=== PATIENT | female | born 1955 | race Caucasian/White ===

== ENCOUNTER 2017-03-03 18:39 | Inpatient (IN) | payer OTHER ==
[~2017-03-03] VITALS: Ht 165.1 cm; Wt 45.8 kg
--- NOTE | 2017-03-03 19:19 | NUR ---
PT TO ER BED
[2017-03-03] MEDS ORDERED: CHLORDIAZEPOXIDE HCL 25 MG CAPSULE PO ONE (19:30)
--- NOTE | 2017-03-03 19:30 | NUR ---
61 YO FEMALE BB FAMILY. PT IS ALERT X 3, C/O ALCOHOL WITHDRAW. PT STATES SHE WAS ON DRINKING BENDGE FOR A WEEK. PT AMBULATED TO ER BED, SKIN WARM AND DRY, RR EVEN AND UNLABORED. AWAITING ORDERS FROM PROVIDER
[2017-03-03] MEDS ORDERED: CHLORDIAZEPOXIDE HCL 25 MG CAPSULE ONE (19:37)
[2017-03-03 19:51] LABS: BASOPHILS # (AUTO) 0.1 /CMM (0.0-0.2); BASOPHILS % (AUTO) 0.6 % (0.0-2.0); EOSINOPHILS % (AUTO) 0.4 % (0.0-6.0); HEMATOCRIT 37 % (33-45); HEMOGLOBIN 12.6 g/dL (11.5-14.8); LYMPHOCYTES # (AUTO) 1.4 /CMM (0.8-4.8); LYMPHOCYTES % (AUTO) 14.3 % (20.0-44.0); MEAN CORPUSCULAR HEMOGLOBIN 33 PG (26.0-33.0); MEAN CORPUSCULAR HGB CONC 34 g/dl (31.0-36.0); MEAN CORPUSCULAR VOLUME 96 fL (82-100); MONOCYTES # (AUTO) 0.8 /CMM (0.1-1.30); MONOCYTES % (AUTO) 8.3 % (2.0-12.0); NEUTROPHILS # (AUTO) 7.6 /CMM (1.8-8.9); NEUTROPHILS % (AUTO) 76.4 % (43.0-81.0); PLATELET COUNT (AUTO) 218 /CMM (150-450); RDW COEFFICIENT OF VARIATION 14.2 (11.5-15.0); RED BLOOD CELL COUNT(AUTO) 3.86 MIL/uL (4.0-5.2); WHITE BLOOD COUNT (AUTO) 9.9 K/uL (4.3-11.0)
--- NOTE | 2017-03-03 19:51 | NUR ---
20G LEFT FA IV STARTED. BLOOD SAMPLE OBTAINED AND SENT TO LAB
[2017-03-03] MEDS ORDERED: IV NS 0.9% 500 ML BAG IV ONE (20:00)
[2017-03-03 20:05] LABS: CALCIUM, SERUM 9.1 mg/dL (8.5-10.1); CREATININE 0.8 mg/dL (0.6-1.3)
[2017-03-03 20:07] LABS: INR 0.93 (0.87-1.13); PROTHROMBIN TIME 9.7 SECS (9.5-12.7)
[2017-03-03 20:09] LABS: POTASSIUM 2.8 mmol/L (3.5-5.1)
[2017-03-03 20:10] LABS: ALBUMIN 4.1 g/dL (3.4-5.0); BILIRUBIN,DIRECT 0.5 mg/dL (0.0-0.2); BILIRUBIN,TOTAL 1.9 mg/dL (0.2-1.0); TOTAL PROTEIN, SERUM 7.5 g/dL (6.4-8.2)
[2017-03-03 20:13] LABS: TROPONIN I 0.022 ng/mL (0.00-0.056)
[2017-03-03] MEDS ORDERED: Magnesium 1 GM/2 ML VIAL IV ONE (20:30)
[2017-03-03] MEDS ORDERED: THIAMINE HCL 100 MG TABLET PO ONE (20:30)
[2017-03-03] MEDS ORDERED: POTASSIUM CHLORIDE 20 MEQ TAB.PRT.SR PO ONE ×2 (20:30→20:33)
[2017-03-03] MEDS ORDERED: IV NS 0.9% 500 ML IV ONE (20:33)
[2017-03-03] MEDS ORDERED: POTASSIUM CL. PREMIX PERIPHER. 50 ML ONE ×2 (20:33→21:19)
[2017-03-03] MEDS ORDERED: THIAMINE HCL 100 MG TABLET ONE (20:33)
[2017-03-03] MEDS ORDERED: Magnesium 1GM/D5W 100ML PREMIX 200 ML IV ONE (20:34)
[2017-03-03] MEDS ORDERED: IV SET PRIMARY PUMP SET 1 EA INFUS.SET MC ONE ×3 (20:34→23:07)
--- NOTE | 2017-03-03 20:38 | NUR ---
CALLED NURSING SUP. FOR MS BED
--- NOTE | 2017-03-03 20:55 | NUR ---
GRACE KIRK TOOK REPORT FOR MS ADMISSION
[2017-03-03] MEDS: POTASSIUM CL. PREMIX PERIPHER. 50 ML IV SCH ×2 (21:28→22:26)
--- NOTE | 2017-03-03 21:29 | NUR ---
TRANSPORTED PT TO MS BED WITHOUT INCIDENT
[2017-03-03 21:41] VITALS: BP 98/71
--- NOTE | 2017-03-03 21:50 | NUR ---
MS RN INITIAL NOTES REPORT WAS RECEIVED FROM ER. PT CAME TO FLOOR VIA GURNEY WITH FAMILY AT BEDSIDE. PT IS A/O X3 WITH MOMENTS OF CONFUSION. PT HAS A LAC #20 WITH POTASSIUM RUNNING. BELONGING LIST COMPLETED, PICTURES OF WOUNDS TAKEN. BED IS IN LOW AND LOCKED POSITION, BED ALARM IS ON. CALL LIGHT IS WITHIN REACH. WILL CONTINUE TO MONITOR PT
[2017-03-03] MEDS ORDERED: ONDANSETRON HCL/PF 4 MG/2 ML VIAL IVP PRN (22:00)
[2017-03-03] MEDS ORDERED: ACETAMINOPHEN 325 MG TABLET PO PRN (22:00)
[2017-03-03] MEDS ORDERED: MAG HYDROX/AL HYDROX/SIMETH 30 ML UDC PO PRN (22:00)
[2017-03-03] MEDS ORDERED: ENOXAPARIN SODIUM 40 MG/0.4 ML DISP.SYRIN SQ SCH (22:00)
[2017-03-03] MEDS ORDERED: MAGNESIUM HYDROXIDE 30 ML UDC PO PRN (22:00)
[2017-03-03] MEDS ORDERED: ENOXAPARIN SODIUM 40 MG/0.4 ML DISP.SYRIN SQ ONE (22:20)
[2017-03-03] MEDS ORDERED: TEMAZEPAM 15 MG CAPSULE ONE (22:20)
--- NOTE | 2017-03-03 23:00 | NUR ---
PT PULLED OUT IV AND IS TRYING TO GET OUT OF BED. EXHAUST EMISSIONS INSPECTOR IS SITTING AT BEDSIDE TO MONITOR PT
[2017-03-03] MEDS ORDERED: IV NS 0.9% 1,000 ML ONE (23:07)
[2017-03-03] MEDS: IV NS 0.9% 1,000 ML IV PRN (23:15)
[2017-03-03] MEDS: TEMAZEPAM 15 MG CAPSULE PO PRN (23:16)
--- NOTE | 2017-03-04 | NUR ---
UNABLE TO START A IV EVEN WITH CHARGE NURSES HELP. CALLED ICU TO GET AN IV STARTED. IT WAS PLACED IS LEFT NECK #20 BY ICU NURSE. PT WAS UNCOOPERATIVE AND COMBATIVE
[2017-03-04] MEDS ORDERED: LORAZEPAM INJ 2 MG/ML VIAL ONE (00:55)
--- NOTE | 2017-03-04 02:08 | NUR ---
SOFT RESTRAINTS WERE ORDERED. PT WAS NON RESPONSIVE TO ALL OTHER INTERVENTIONS THAT WERE INITIATED PRIOR TO RESTRAINTS. SOFT WRIST RESTRAINTS WERE APPLIED BILATERALLY. WILL CONTINUE TO MONITOR
--- NOTE | 2017-03-04 06:44 | NUR ---
MS RN CLOSING NOTES PT IS IN BED RESTING NO SIGNS OF SOB OR DISTRESS. IV ACCESS WITH NS RUNNING AT 100 ML/HR. SOFT WRIST RESTRAINTS ARE ON BILATERALLY. BED IS IN LOW AND LOCKED POSITION, BED ALARM IS ON. WILL ENDORSE TO DAY SHIFT
[2017-03-04 07:35] LABS: BASOPHILS % (AUTO) 0.1 % (0.0-2.0); EOSINOPHILS # (AUTO) 0.1 /CMM (0.0-0.7); EOSINOPHILS % (AUTO) 0.6 % (0.0-6.0); HEMATOCRIT 36 % (33-45); LYMPHOCYTES # (AUTO) 1.6 /CMM (0.8-4.8); LYMPHOCYTES % (AUTO) 18.6 % (20.0-44.0); MEAN CORPUSCULAR HEMOGLOBIN 33 PG (26.0-33.0); MEAN CORPUSCULAR HGB CONC 34 g/dl (31.0-36.0); MEAN CORPUSCULAR VOLUME 97 fL (82-100); MONOCYTES # (AUTO) 0.5 /CMM (0.1-1.30); MONOCYTES % (AUTO) 6.1 % (2.0-12.0); NEUTROPHILS # (AUTO) 6.4 /CMM (1.8-8.9); NEUTROPHILS % (AUTO) 74.6 % (43.0-81.0); PLATELET COUNT (AUTO) 188 /CMM (150-450); RDW COEFFICIENT OF VARIATION 15.6 (11.5-15.0); RED BLOOD CELL COUNT(AUTO) 3.68 MIL/uL (4.0-5.2); WHITE BLOOD COUNT (AUTO) 8.6 K/uL (4.3-11.0)
[2017-03-04 07:53] LABS: CALCIUM, SERUM 8.6 mg/dL (8.5-10.1); CREATININE 0.7 mg/dL (0.6-1.3); MAGNESIUM 1.9 mg/dL (1.8-2.4); PHOSPHORUS 2.4 mg/dL (2.5-4.9); POTASSIUM 3.6 mmol/L (3.5-5.1); THYROID STIMULATING HORMONE 2.971 uIU/mL (0.358-3.74)
[2017-03-04 08:00] VITALS: BP 121/75
--- NOTE | 2017-03-04 08:00 | NUR ---
MS RN NOTES PATIENT IN BED RESTING NO SOB OR ACUTE DISTRESS NOTED. PATIENT ALERT, ORIENTED X3. DENIES ANY PAIN OR DISCOMFORT. PATIENT WITH BILATERAL WRIST RESTRAINS FOR HER SAFETY. BED IN LOW LOCKED POSITION, CALL LIGHT WITHIN REACH. WILL CONTINUE TO MONITOR.
[2017-03-04] MEDS: PANTOPRAZOLE 40 MG TABLET.DR PO SCH (08:56)
[2017-03-04] MEDS: THIAMINE HCL 100 MG TABLET PO SCH (08:56)
[2017-03-04] MEDS: IV NS 0.9% 1,000 ML IV PRN ×2 (09:57→21:09)
--- NOTE | 2017-03-04 12:00 | NUR ---
MS RN NOTES PATIENT SEEN AMBULATING WITH PHYSICAL THERAPY WITH UNSTEADY GAIT, NEEDS ASSISTANCE.
--- NOTE | 2017-03-04 12:30 | NUR ---
MS RN NOTES PATIENT SEEN AND EVALUATED BY DR. FRANKLYN Burnham ORDERS NOTED AND CARRIED OUT.
[2017-03-04] MEDS ORDERED: SECONDARY IV SET 1 EA INFUS.SET MC ONE (15:08)
[2017-03-04] MEDS: Folic acid 1 MG in IV D5W 50 ML IV SCH (15:13)
[2017-03-04] MEDS ORDERED: K PHOS NEUTRAL 250 MG TABLET PO ONE (15:30)
[2017-03-04] MEDS: LORAZEPAM 0.5 MG TABLET PO SCH (16:14)
[2017-03-04 17:25] VITALS: BP 114/75
--- NOTE | 2017-03-04 18:49 | NUR ---
MS RN NOTES PATIENT IN BED RESTING NO SOB OR ACUTE DISTRESS NOTED. ALL DUE MEDICATIONS ADMINISTERED. SITTER AT BEDSIDE FOR SAFETY. ALL NEEDS MET WILL ENDORSE CARE TO PM SHIFT.
--- NOTE | 2017-03-04 19:25 | NUR ---
RN NOTES RECEIVED PT AWAKE, SITTING IN BED, NO SOB, NOT IN DISTRESS, ON ROOM AIR AND TOLERATED WELL. PT ALERT AND ORIENTED X2-3, WITH PERIODS OF CONFUSION, DENIES ANY PAIN AND DISCOMFORT AT THIS TIME.BILATERAL WRIST RESTRAINT ON FOR SAFETY WITH GOOD CIRCULATION.IV ACCESS ON LEFT EXTERNAL JUGULAR WITH IVF INFUSING WELL. SAFETY MEASURES AND FALL PRECAUTION OBSERVED.KEPT BED IN THE LOWEST POSITION, LOCKED, SIDE RAILS UP X3 WITH CALL LIGHT WITHIN REACH SITTER AT BEDSIDE. WILL CONTINUE TO MONITOR PT.
[2017-03-04 20:00] VITALS: BP 117/72
[2017-03-04] MEDS: ENOXAPARIN SODIUM 40 MG/0.4 ML DISP.SYRIN SQ SCH (21:09)
[2017-03-04] MEDS: LORAZEPAM INJ 2 MG/ML VIAL IV PRN (21:10)
--- NOTE | 2017-03-04 21:10 | NUR ---
RN NOTES PT BECOMES AGITATED, GETTING OUT OF BED, HITTING AND KICKING STAFF. ATIVAN 1MG GIVEN IV. WILL CONTINUE TO MONITOR PT.
[2017-03-04] MEDS: TEMAZEPAM 15 MG CAPSULE PO PRN (21:48)
--- NOTE | 2017-03-04 21:48 | NUR ---
RN NOTES PT HAS DIFFICULTY SLEEPING, RESTORIL 15 MG TAB GIVEN PO AND TOLERATED WELL. WILL CONTINUE TO ONITOR.
[2017-03-04 22:00] VITALS: BP 117/72
[2017-03-05] MEDS: LORAZEPAM INJ 2 MG/ML VIAL IV PRN (04:46)
--- NOTE | 2017-03-05 04:46 | NUR ---
RN NOTES PT AWAKE, AND AGITATED, PT KEEPS ON GETTING OUT OF BED, HITTING ANG KICKING STAFF. ATIVAN 1 MG GIVEN IV. WILL CONTINUE TO MONITOR.
[2017-03-05 06:53] LABS: BASOPHILS % (AUTO) 0.3 % (0.0-2.0); EOSINOPHILS % (AUTO) 0.5 % (0.0-6.0); HEMATOCRIT 33 % (33-45); HEMOGLOBIN 11.1 g/dL (11.5-14.8); LYMPHOCYTES # (AUTO) 1.2 /CMM (0.8-4.8); LYMPHOCYTES % (AUTO) 14.4 % (20.0-44.0); MEAN CORPUSCULAR HEMOGLOBIN 33 PG (26.0-33.0); MEAN CORPUSCULAR HGB CONC 34 g/dl (31.0-36.0); MEAN CORPUSCULAR VOLUME 97 fL (82-100); MONOCYTES # (AUTO) 0.7 /CMM (0.1-1.30); MONOCYTES % (AUTO) 8.8 % (2.0-12.0); NEUTROPHILS # (AUTO) 6.1 /CMM (1.8-8.9); PLATELET COUNT (AUTO) 171 /CMM (150-450); RDW COEFFICIENT OF VARIATION 15.4 (11.5-15.0); RED BLOOD CELL COUNT(AUTO) 3.35 MIL/uL (4.0-5.2)
--- NOTE | 2017-03-05 07:17 | NUR ---
RN NOTES PT ASLEEP, HOB ELEVATED, BREATHING REGULAR AND UNLABORED, NO SIGNS OF DISTRESS AND DISCOMFORT NOTED. VITAL SIGNS STABLE, AFEBRILE. NO EPISODE OF NAUSEA AND VOMITING. NO COMPLAIN OF PAIN. PT IS VERY RESTLESS AND AGITATED PATRICIA WHOLE SHIFT, WANTED TO GET OUT OF BED AND WALK AROUND AND GOING TO OTHER PATIENTS ROOM. RESTRAINTS ON WITH GOOD CIRCULATION WITH SITTER AT BEDSIDE. UNABLE TO DO SKIN AND BODY ASSESSMENT BECAUSE PT IS HITTING AND KICKING THE STAFF. REORIENT NEEDED. ALL NEEDS ATTENDED. WILL ENDORSE TO MORNING RN FOR CONTINUITY OF CARE.
[2017-03-05 07:26] LABS: CALCIUM, SERUM 8.7 mg/dL (8.5-10.1); CREATININE 0.6 mg/dL (0.6-1.3); MAGNESIUM 1.5 mg/dL (1.8-2.4); PHOSPHORUS 2.6 mg/dL (2.5-4.9)
[2017-03-05 08:00] VITALS: BP 126/71
[2017-03-05] MEDS: THIAMINE HCL 100 MG TABLET PO SCH (09:19)
[2017-03-05] MEDS: SERTRALINE HCL 25 MG TABLET PO SCH (09:19)
[2017-03-05] MEDS: LORAZEPAM 0.5 MG TABLET PO SCH ×2 (09:19→17:32)
[2017-03-05] MEDS: PANTOPRAZOLE 40 MG TABLET.DR PO SCH (09:19)
[2017-03-05] MEDS ORDERED: Thiamine 500 MG in IV D5W 50 ML IV SCH (12:00)
[2017-03-05] MEDS ORDERED: SECONDARY IV SET 1 EA INFUS.SET MC ONE ×2 (12:29→13:33)
[2017-03-05] MEDS: Magnesium 1GM/D5W 100ML PREMIX 100 ML IV SCH ×5 (12:34→18:58)
[2017-03-05] MEDS: POTASSIUM CHLORIDE 20 MEQ TAB.PRT.SR PO SCH ×3 (12:34→15:00)
[2017-03-05] MEDS ORDERED: POTASSIUM CHLORIDE 20 MEQ TAB.PRT.SR PO ONE (13:30)
[2017-03-05] MEDS: Thiamine 500 MG in IV D5W 250 ML IV SCH (13:40)
[2017-03-05] MEDS: Folic acid 1 MG in IV D5W 50 ML IV SCH (14:21)
[2017-03-05 16:00] VITALS: BP 118/61
--- NOTE | 2017-03-05 18:58 | NUR ---
END OF SHIFT PATIENT STABLE AT END OF SHIFT. NOT ACUTE CHANGES. BREATHING EVEN AND UNLABORED. VS WNL. L JUGULAR IV STILL PATENT NO COMPLICATIONS. CHECKED PATIENT Q2H AND PRN, ENCOURAGED ACTIVITY TOLERATED. SITTER AT BED SIDE ALL DAY. DISCUSSED PLAN OF CARE WITH PATIENT'S SISTER ANN. PATIENT'S SISTER PROVIDED DIANANET'S HUSBANDS NUMBER FOR UPDATES. WILL ENDORSE TO ASSISTED SALES REPRESENTATIVE TO ENDORSE TOMORROW FOR MD AND NEUROLOGIST TO CALL. INFORMED DR. ESTES TODAY ALREADY. PATIENT ABLE TO VERBALIZE NEEDS. CONSUMING ADEQUATE PO INTAKE. 1 MORE BAG OF MAGNESIUM TO BE INFUSED, LATE DUE TO MULTIPLE IV INFUSIONS ALL DAY. NO COMPLCAINTS OF PAIN. NO SEIZURES. PATIENT SLEEP AND IS EASILY ARROUSABLE. CALL LIGHT IN REACH.
--- NOTE | 2017-03-05 19:30 | NUR ---
MS RN NOTE RECEIVED PATIENT FROM DAY SHIFT, PATIENT IS ALERT AND ORIENTEDX2, SLEEPING AT THIS TIME, NO S/S OF RESPIRATORY DISTRESS OR FACIAL GRIMACE AT THIS TIME. IV ON LEFT JUGULAR VEIN IS PATENT AND INTACT, MAG IS RUNNING. SITTER AT BEDSIDE FOR BEHAVIOR OBSERVATION. SRX2, BED IN LOW POSITION, CALL LIGHT WITHIN REACH, WILL CONTINUE TO MONITOR PATIENT.
[2017-03-05 20:00] VITALS: BP 134/81
[2017-03-05] MEDS ORDERED: Magnesium 1GM/D5W 100ML PREMIX 100 ML IV SCH (20:00)
--- NOTE | 2017-03-05 20:00 | NUR ---
MS RN NOTE PATIENT HAS 1 GM MAGNESIUM BAG TO F/U FROM THE DAY SHIFT, UNABLE TO PULL IT OUT FROM THE PYXIS. CALLED THE PHARMACY AND THEY NEWLY ADDED 1 GM MAG ORDER.
[2017-03-05] MEDS: ENOXAPARIN SODIUM 40 MG/0.4 ML DISP.SYRIN SQ SCH (20:20)
[2017-03-06] MEDS: IV NS 0.9% 1,000 ML IV PRN (03:25)
[2017-03-06] MEDS: HYDROCODONE/APAP 10/325MG 1 EA TABLET PO PRN ×2 (05:25→15:22)
--- NOTE | 2017-03-06 06:53 | NUR ---
MS RN NOTE PATIENT IS SLEEPING ON BED AT THIS TIME, NO S/S OF RESPIRATORY DISTRESS OR PAIN AT THIS TIME. IV ON LEFT EXTERNAL JUGULAR IS PATENT AND INTACT, NS IS RUNNING. NO ACUTE DISTRESS NOTED THROUGHOUT THE STAFFING COORDINATOR. WILL ENDORSE TO DAY SHIFT NURSE FOR ALISON.
[2017-03-06 07:18] LABS: BASOPHILS % (AUTO) 0.3 % (0.0-2.0); EOSINOPHILS # (AUTO) 0.1 /CMM (0.0-0.7); EOSINOPHILS % (AUTO) 2.8 % (0.0-6.0); HEMATOCRIT 33 % (33-45); HEMOGLOBIN 10.9 g/dL (11.5-14.8); LYMPHOCYTES # (AUTO) 1.3 /CMM (0.8-4.8); LYMPHOCYTES % (AUTO) 26.3 % (20.0-44.0); MEAN CORPUSCULAR HEMOGLOBIN 33 PG (26.0-33.0); MEAN CORPUSCULAR HGB CONC 34 g/dl (31.0-36.0); MEAN CORPUSCULAR VOLUME 98 fL (82-100); MONOCYTES # (AUTO) 0.7 /CMM (0.1-1.30); MONOCYTES % (AUTO) 13.7 % (2.0-12.0); NEUTROPHILS # (AUTO) 2.7 /CMM (1.8-8.9); NEUTROPHILS % (AUTO) 56.9 % (43.0-81.0); PLATELET COUNT (AUTO) 198 /CMM (150-450); RDW COEFFICIENT OF VARIATION 15.3 (11.5-15.0); RED BLOOD CELL COUNT(AUTO) 3.33 MIL/uL (4.0-5.2); WHITE BLOOD COUNT (AUTO) 4.8 K/uL (4.3-11.0)
--- NOTE | 2017-03-06 07:30 | NUR ---
MS REAGAN AM NOTES RECEIVED PT IN BED, AAO X 2-3, WIT PERIODS OF CONFUSION, CALM COOPERATIVE, ON RA, NOT IN ANY DISTRESS, RESPIRATION UNLABORED, DENIES ANY PAIN AT THIS TIME, NO RESTRAINT ATHIS TIME. SITTER AT BEDSIDE. LEFT EXT JUG IV ACCESS G 20, WITH NS AT 100 ML/HR INFUSING WELL , SITE CLEAR. ON REGULAR DIET, AMBULATES WITH ASSIST. SEE NURSING FLOWSHEET FOR SKIN ISSUES. SAFETY MEASURES AND FALL PRECAUTION OBSERVED.KEPT BED IN THE LOWEST POSITION, LOCKED, SIDE RAILS UP X3 WITH CALL LIGHT WITHIN REACH. WILL CONTINUE TO MONITOR PT.
[2017-03-06 07:49] LABS: CALCIUM, SERUM 8.1 mg/dL (8.5-10.1); CREATININE 0.5 mg/dL (0.6-1.3); MAGNESIUM 2.5 mg/dL (1.8-2.4); PHOSPHORUS 3.2 mg/dL (2.5-4.9); POTASSIUM 3.9 mmol/L (3.5-5.1)
[2017-03-06 08:00] VITALS: BP 123/85
[2017-03-06] MEDS: PANTOPRAZOLE 40 MG TABLET.DR PO SCH (08:18)
[2017-03-06] MEDS: LORAZEPAM 0.5 MG TABLET PO SCH ×2 (08:18→17:25)
[2017-03-06] MEDS: SERTRALINE HCL 25 MG TABLET PO SCH (08:18)
--- NOTE | 2017-03-06 09:30 | NUR ---
MS RN NOTES ADMINISTERED DUE MEDS.
--- NOTE | 2017-03-06 11:38 | NUR ---
MS RN NOTES MRSA SURVEILLANCE SPECIMEN BOTH NARES COLLECTED AND SENT TO LAB.
[2017-03-06] MEDS: Thiamine 500 MG in IV D5W 250 ML IV SCH (13:41)
--- NOTE | 2017-03-06 13:41 | NUR ---
MS RN NOTES STARTED THIAMINE IV.
[2017-03-06] MEDS: Folic acid 1 MG in IV D5W 50 ML IV SCH (14:40)
[2017-03-06 16:00] VITALS: BP 145/92
[2017-03-06 18:00] VITALS: BP 145/92
--- NOTE | 2017-03-06 18:26 | NUR ---
MS RN CLOSING NOTES PT IN BED, RESTING, AAO X 2-3, WIT PERIODS OF CONFUSION, CALM COOPERATIVE, ON RA, NOT IN ANY DISTRESS, RESPIRATION UNLABORED, DENIES ANY PAIN AT THIS TIME, NO RESTRAINT AT THIS TIME. SITTER AT BEDSIDE. LEFT EXT JUG IV ACCESS G 20, WITH NS AT 100 ML/HR INFUSING WELL , SITE CLEAR. ON REGULAR DIET, AMBULATES WITH ASSIST. SAFETY MEASURES AND FALL PRECAUTION OBSERVED.KEPT BED IN THE LOWEST POSITION, LOCKED, SIDE RAILS UP X3 WITH CALL LIGHT WITHIN REACH. ALL NEEDS MET. NO OTHER SIGNIFICANT CHANGE IN CONDITION. WILL ENDORSE TO NEXT SHIFT FOR ALISON.
--- NOTE | 2017-03-06 19:30 | NUR ---
MS RN NOTES RECEIVED ON BED A/O X2-3,BREATHING REGULAR.NOT IN ANY FORM OF DISTRESS.SITTER AT BEDSIDE FOR SAFETY.IV NS INFUSING AT 100ML/HR RATE,SITE PATENT LEFT EXTERNAL JUGULAR.ABLE TO ANSWER SIMPLE QUESTION.CALL LIGHT IN REACH,NEEDS ANTICIPATED.
[2017-03-06 19:47] VITALS: BP 130/83
[2017-03-06] MEDS: HYDROCODONE/APAP 5/325MG 1 EACH TABLET PO PRN (20:48)
--- NOTE | 2017-03-06 20:48 | NUR ---
MS RN NOTES PAIN MANAGEMENT C/O PAIN ON HIS RIGHT SIDE,MEDICATED WITH NORCO 5/325MG,1 TAB PO ORDERED.
[2017-03-06] MEDS: ENOXAPARIN SODIUM 40 MG/0.4 ML DISP.SYRIN SQ SCH (20:50)
--- NOTE | 2017-03-06 23:00 | NUR ---
MS RN NOTES SLEEPING AT THIS TIME,KEPT WARM AND COMFORTABLE.
[2017-03-07 01:05] VITALS: BP 130/83
[2017-03-07] MEDS: HYDROCODONE/APAP 5/325MG 1 EACH TABLET PO PRN ×4 (03:50→19:30)
--- NOTE | 2017-03-07 03:50 | NUR ---
MS RN NOTES PAIN MANAGEMENT C/O PAIN ON HER RIGHT SIDE RIBS AREA 7/10 ON PAIN SCALE.MEDICATED WITH NORCO 5/325MG,1 TAB PO ORDERED.
[2017-03-07] MEDS: IV NS 0.9% 1,000 ML IV PRN ×2 (04:16→16:40)
--- NOTE | 2017-03-07 06:41 | NUR ---
MS RN NOTES SLEPT WELL AT NIGHT.PAIN MANAGEMENT EFFECTIVE.IVF IN PROGRESS.IN NO ACUTE DISTRESS.WILL ENDORSE TO DAY NURSE FOR ALISON.
[2017-03-07 07:00] LABS: BASOPHILS % (AUTO) 0.7 % (0.0-2.0); EOSINOPHILS # (AUTO) 0.2 /CMM (0.0-0.7); EOSINOPHILS % (AUTO) 4.1 % (0.0-6.0); HEMATOCRIT 32 % (33-45); HEMOGLOBIN 10.8 g/dL (11.5-14.8); LYMPHOCYTES # (AUTO) 1.5 /CMM (0.8-4.8); LYMPHOCYTES % (AUTO) 30.6 % (20.0-44.0); MEAN CORPUSCULAR HEMOGLOBIN 34 PG (26.0-33.0); MEAN CORPUSCULAR HGB CONC 34 g/dl (31.0-36.0); MEAN CORPUSCULAR VOLUME 99 fL (82-100); MONOCYTES # (AUTO) 0.9 /CMM (0.1-1.30); MONOCYTES % (AUTO) 19.5 % (2.0-12.0); NEUTROPHILS # (AUTO) 2.2 /CMM (1.8-8.9); NEUTROPHILS % (AUTO) 45.1 % (43.0-81.0); PLATELET COUNT (AUTO) 221 /CMM (150-450); RDW COEFFICIENT OF VARIATION 15.5 (11.5-15.0); RED BLOOD CELL COUNT(AUTO) 3.22 MIL/uL (4.0-5.2); WHITE BLOOD COUNT (AUTO) 4.8 K/uL (4.3-11.0)
--- NOTE | 2017-03-07 07:20 | NUR ---
RECEIVED PT IN BED, SLEEPING WITH SITTER IN THE ROOM. PT SHOWS NO SIGNS OF DISTRESS OR DISCOMFORT. IV IN L EXTERNAL JUGULAR INTACT AND RUNNING. BED IS IN LOW AND LOCKED POSITION, SIDE RAILS UP X2, AND CALL LIGHT IS IN REACH.WILL CONTINUE TO MONITOR.
[2017-03-07 07:41] LABS: CALCIUM, SERUM 8.4 mg/dL (8.5-10.1); CREATININE 0.6 mg/dL (0.6-1.3); MAGNESIUM 1.9 mg/dL (1.8-2.4); PHOSPHORUS 3.6 mg/dL (2.5-4.9); POTASSIUM 4.3 mmol/L (3.5-5.1)
[2017-03-07 08:00] VITALS: BP 138/88
[2017-03-07] MEDS: LORAZEPAM 0.5 MG TABLET PO SCH ×2 (08:11→16:32)
[2017-03-07] MEDS: PANTOPRAZOLE 40 MG TABLET.DR PO SCH (08:11)
[2017-03-07] MEDS: SERTRALINE HCL 25 MG TABLET PO SCH (08:11)
[2017-03-07 08:40] VITALS: BP 138/88
[2017-03-07 08:54] LABS: EOSINOPHILS % (MANUAL) 3 % (0-4); LYMPHOCYTES % (MANUAL) 28 % (16-48); MONOCYTES % (MANUAL) 18 % (0-11.0); NEUTROPHILS % (MANUAL) 51 (42-76)
[2017-03-07] MEDS ORDERED: THIAMINE IV SCH (13:00)
[2017-03-07] MEDS ORDERED: D5W IV SCH (13:00)
[2017-03-07] MEDS: Folic acid 1 MG in IV D5W 50 ML IV SCH (14:04)
[2017-03-07 16:00] VITALS: BP_SYST 117; BP_SYST 138; BP_DIAS 71
--- NOTE | 2017-03-07 16:19 | NUR ---
cargo station worker met with patient at bed side. Patient was oriented x4. Patient was calm and cooperative. Per patient, she currently has a hx of alcohol abuse but denied drug abuse. Per patient, she lives in [place] [address] and is here visiting her sister. Patient's sister Marimar Ramirez ([phone]/ [phone]). cargo station worker asked patient if she wanted to go to a treatment center. Patient stated, that she did not want to go to a treatment center. cargo station worker asked if she wanted resources and patient declined. cargo station worker left her a list of AA meetings that she could attend. Per patient, she denied visual and auditory hallucinations. Patient denied suicidal and homicidal ideations. cargo station worker informed patient that she was available if needed. Addendum: 03/07/17 at 1628 by SRAVAN SALGADO Patient's sister Marimar Ramirez ([phone]/ [phone]) came to speak to the social media job titles. Patient's sister would like patient to go into a drug and alcohol treatment center. cargo station worker informed Marimar that she would look into it but patient had refused earlier. cargo station worker will follow-up regarding treatment centers and will provide family with resources.
--- NOTE | 2017-03-07 18:54 | NUR ---
PT IS IN BED, SLEEPING INTERMITTENTLY, A/OX3. NO SIGNS OF DISTRESS OR COMPLAINTS OF PAIN. LEFT EXTERNAL JUGULAR IV RUNNING NS @ 100ML/HR. ALL MEDS GIVEN ORDERED. BED IS IN LOW AND LOCKED POSITION, SIDE RAILS UP X2, CALL LIGHT IS IN REACH. WILL ENDORSE TO CONTRACT LEAD NURSE FOR CONTINUITY OF CARE.
--- NOTE | 2017-03-07 19:20 | NUR ---
RN OPEN NOTES RECEIVED PATIENT AWAKE IN BED WITH SITTER AT BEDSIDE. A/O X3. NO SIGNS OF DISTRESS OR DISCOMFORT. BREATHING EVEN AND UNLABORED. IV ACCESS IN LEFT EJ WITH NS INFUSING, PATENT AND INTACT, NO SIGNS OF REDNESS OR INFILTRATION. BED IN LOW LOCKED POSITION WITH SIDE RAILS X2. CALL LIGHT WITHIN REACH. WILL CONTINUE TO MONITOR.
[2017-03-07 20:00] VITALS: BP 145/91
[2017-03-07] MEDS: ENOXAPARIN SODIUM 40 MG/0.4 ML DISP.SYRIN SQ SCH (21:12)
[2017-03-08] MEDS: HYDROCODONE/APAP 5/325MG 1 EACH TABLET PO PRN (04:38)
[2017-03-08] MEDS: IV NS 0.9% 1,000 ML IV PRN (04:38)
--- NOTE | 2017-03-08 04:38 | NUR ---
RN NOTES ADMINISTERED NORCO 5/325 ORDERED FOR PAIN 7/10 IN RIGHT RIBS. WILL CONTINUE TO MONITOR.
--- NOTE | 2017-03-08 07:40 | NUR ---
RN CLOSING NOTES PATIENT RESTING IN BED WITH SITTER AT BEDSIDE. A/O X3. NO SIGNS OF DISTRESS OR DISCOMFORT. BREATHING EVEN AND UNLABORED. IV ACCESS IN LEFT EJ WITH NS INFUSING, PATENT AND INTACT, NO SIGNS OF REDNESS OR INFILTRATION. ALL NEEDS MET. NO SIGNIFICANT CHANGES THROUGH THE NIGHT. BED IN LOW LOCKED POSITION WITH SIDE RAILS X2. CALL LIGHT WITHIN REACH. ENDORSED TO AM SHIFT FOR ALISON.
--- NOTE | 2017-03-08 07:59 | NUR ---
RN OPENING NOTES RECEIVED PATIENT IN BED, ASLEEP, HOB ELEVATED, NO SOB OR DISTRESS NOTED. A/O X3 VERBALLY RESPONSIVE AND ABLE TO MAKE NEEDS KNOWN. IV INTACT AND PATENT. KEEP PATIENT CLEAN AND COMFORTABLE IN BED, CALL LIGHT WITHIN PATIENT REACH, WILL CONTINUE TO MONITOR ACCORDINGLY.
[2017-03-08 08:00] VITALS: BP 144/83
[2017-03-08] MEDS: SERTRALINE HCL 25 MG TABLET PO SCH (09:12)
[2017-03-08] MEDS: PANTOPRAZOLE 40 MG TABLET.DR PO SCH (09:12)
[2017-03-08] MEDS: HYDROCODONE/APAP 10/325MG 1 EA TABLET PO PRN ×2 (09:12→15:38)
[2017-03-08] MEDS: LORAZEPAM 0.5 MG TABLET PO SCH ×2 (09:12→18:03)
--- NOTE | 2017-03-08 11:45 | NUR ---
RN NOTES PATIENT IS LYING DOWN ON BED IN STABLE CONDITION WITH NO SOB OR DISTRESS NOTED.
--- NOTE | 2017-03-08 12:33 | NUR ---
cleaner touch up worker met with patient at bedside. Patient was calm and pleasant. cleaner touch up worker asked patient again if she was interested in going to a treatment center for alcohol abuse. Patient stated, " I spoke to my and we agreed that I am going to a treatment center back home in [place]." cleaner touch up worker provided patient with resources to treatment centers and AA meetings. cleaner touch up worker informed patient that she was available if needed.
--- NOTE | 2017-03-08 12:39 | NUR ---
metal worker faxed substance abuse resources to patient's sister Marimar Ramirez (phone: [phone]/ [phone]/ ) upon her request. metal worker informed Marimar that she was available if needed.
[2017-03-08] MEDS ORDERED: Thiamine 100 MG in IV D5W 50 ML IV SCH (13:00)
[2017-03-08] MEDS: Folic acid 1 MG in IV D5W 50 ML IV SCH (15:33)
[2017-03-08 16:00] VITALS: BP 132/82
--- NOTE | 2017-03-08 18:10 | NUR ---
RN NOTES DISCHARGE INSTRUCTIONS GIVEN TO PATIENT AND ABLE TO UNDERSTAND INSTRUCTIONS AND SIGNED DISCHARGE PAPER AND BELONGINGS LIST. PICTURES TAKEN AND FILE IN THE PATIENT CHART. PATIENT LEFT WALKING ACCOMPANIED WITH SISTER IN STABLE CONDITION. NO SOB OR DISTRESS NOTED. VITALS SIGNS CHECKED AND RECORDED. MD AND CHARGE NURSE AWARE.
== END 2017-03-08 18:45 | disposition home or self-care (01) | DRG 897 ==
LOC: ER 18:41 → MED 21:02
PROVIDERS: ADMIT Nurse Practitioner Acute Care; ATTEND Nurse Practitioner Acute Care
DX: F10.239 Alcohol dependence with withdrawal, unspecified (principal); E87.1 Hypo-osmolality and hyponatremia; F33.9 Major depressive disorder, recurrent, unspecified; R27.0 Ataxia, unspecified; E87.6 Hypokalemia; E83.42 Hypomagnesemia; F17.210 Nicotine dependence, cigarettes, uncomplicated; G47.00 Insomnia, unspecified; R29.6 Repeated falls; E80.6 Other disorders of bilirubin metabolism; K76.89 Other specified diseases of liver; R74.8 Abnormal levels of other serum enzymes; E56.9 Vitamin deficiency, unspecified; F10.26 Alcohol dependence with alcohol-induced persisting amnestic disorder
CPT/HCPCS: 36415; 70450-TC; 71010-TC; 80048-TC; 80061-TC; 80076-TC; 82140-TC; 83735-TC; 84100-TC; 84425; 84443-TC; 84484-TC; 85025-TC; 85730-TC; 87081-TC; 94799-TC; 97001-TC; 97116-TC; 97530-TC; A4606; J1650; J2060; J3411; J3475; J3480; J3490; J7030; J7040; J7050; J7060; Z7610